=== PATIENT | female | born 1965 | race Caucasian/White ===

== ENCOUNTER 2016-10-19 12:45 | Emergency (ER) | payer MEDICARE, OTHER ==
[~2016-10-19] VITALS: Ht 162.6 cm; Wt 65.4 kg
[~2016-10-19 12:45] MED LIST: ATEN1TAB73 PO; HUMALOG SQ; LANTUSP SQ; LORA0.5T PO; LORTA5 PO
[2016-10-19 12:58] VITALS: BP 119/55; PULSE 56; RESP 16; TEMP 97.7; O2SAT 98
--- NOTE | 2016-10-19 13:12 | PD ---
HPI . lower abdominal pain and painful urination x 4-5 days Chief Complaint: Abdominal Pain Time Seen by Provider: 13:04 Travel History International Travel<30 days: No Contact w/Intl Traveler<30days: No Traveled to known affect area: No History of Present Illness HPI 51-year-old female with history of type 1 diabetes, hyperlipidemia and possible hypertension here with complaints of abdominal pain for 4-5 days with some dysuria. Patient tells me that she has had some lower abdominal pain and fullness. She also repeats increased urinary frequency and dysuria. She tells me that she has some trouble sleeping and that she has been having very vivid dreams about her friend being incarcerated. She tells me that she needs some medication to stop her dreams. She then voices concern that she would like to see psychiatry. When I asked her if she is suicidal or homicidal she denies such ideation. She does have a new primary care doctor who will be taking over her care on 29 October. She denies any nausea, vomiting, diaphoresis, chest pain , diarrhea, or any other significant abdominal pain. PFSH Past Medical History Autoimmune Disease: No Diabetes: Yes Diminished Hearing: Yes ([place]) Hypertension: Yes PNEUMOCCOCAL Vaccine (Year): 2 : 4 Para: 4 Past Surgical History Section: Yes (X 3) Social History Alcohol Use: No Tobacco Use: Yes (ppd) Substance Use: No Allergies-Medications (Allergen,Severity, Reaction): Coded Allergies: Levaquin (Verified Allergy, Severe, DIZZINESS, 03/18/12) Codeine (Verified Allergy, Unknown, Rash, 10/19/16) Sulfa (Verified Allergy, Unknown, 03/18/12) Bactrim (Verified Adverse Reaction, Severe, VAGINAL ITCHING AND SWELLING, 03/18/12) Reported Meds & Prescriptions Reported Meds & Active Scripts Active Keflex (Cephalexin) 500 Mg Cap 500 Mg PO Q6H Reported Atorvastatin (Atorvastatin Calcium) 20 Mg Tab 20 Mg PO HS Metformin (Metformin HCl) 500 Mg Tab 500 Mg PO TIDPC With meals Humalog Kwikpen Pen Inj (Insulin Lispro (Human) Inj) 300 Unit/3 Ml Pen 14 Units SQ TID Levemir Inj (Insulin Detemir) 1,000 unit/ 10 ML Vial 30 Units SQ HS Do not mix with any other Insulin. Review of Systems General / Constitutional: No: Fever Eyes: No: Visual changes HENT: No: Headaches Cardiovascular: No: Chest Pain or Discomfort Respiratory: No: Shortness of Breath Gastrointestinal: Positive: Abdominal Pain Genitourinary: Positive: Frequency, Dysuria Musculoskeletal: No: Pain Skin: No Rash Neurologic: No: Weakness Psychiatric: No: Depression Endocrine: No: Polydipsia Hematologic/Lymphatic: No: Easy Bruising Physical Exam Narrative GENERAL: AAO x 3, no acute distress, Well-nourished, well-developed patient. SKIN: Warm and dry. No visible rashes or bruising. HEAD: Normocephalic and atraumatic. EYES: No scleral icterus. No injection or drainage. b/l stabismus ENT: No nasal drainage noted. Mucous membranes pink. Airway patent. NECK: Supple, trachea midline. No JVD. CARDIOVASCULAR: Regular rate and rhythm without murmurs, gallops, or rubs. RESPIRATORY: Breath sounds equal bilaterally. No accessory muscle use. No rhonchi or rales. GASTROINTESTINAL: Abdomen soft, normoactive bowel sounds, nondistended, + suprapubic tenderness, otherwise normal EXTREMITIES: No cyanosis or edema. BACK: Nontender without obvious deformity. No CVA tenderness. PSYCH: AAO x 3, normal affect. Data Data Last Documented VS Vital Signs Date Time Temp Pulse Resp B/P Pulse Ox O2 Delivery O2 Flow Rate FiO2 10/19/16 13:20 17 10/19/16 12:58 97.7 56 119/55 98 Orders Urinalysis - C+S If Indicated (10/19/16 13:13) Urine Culture (10/19/16 14:09) Gc And Chlamydia Pcr (10/19/16 14:10) Labs Laboratory Tests Test 10/19/16 13:20 Urine Color YELLOW Urine Turbidity HAZY Urine pH 5.5 Urine Specific [place] 1.039 Urine Protein 30 mg/dL Urine Glucose (UA) NEG mg/dL Urine Ketones NEG mg/dL Urine Occult Blood NEG Urine Nitrite NEG Urine Bilirubin NEG Urine Urobilinogen 2.0 MG/DL Urine Leukocyte Esterase TRACE Urine RBC 3 /hpf Urine WBC 1 /hpf Urine Squamous Epithelial 8 /hpf Cells Urine Calcium Oxalate Crystals RARE /hpf Urine Bacteria OCC /hpf Urine Mucus MOD /lpf Microscopic Urinalysis Comment CULT NOT INDICATED MDM Medical Decision Making Medical Screen Exam Complete: Yes Emergency Medical Condition: Yes Medical Record Reviewed: Yes Differential Diagnosis UTI, GERD, insomnia, interstitial cystitis Narrative Course 51-year-old female with history of type 1 diabetes, hyperlipidemia and possible hypertension here with complaints of abdominal pain for 4-5 days with some dysuria. Patient tells me that she has had some lower abdominal pain and fullness. She also repeats increased urinary frequency and dysuria. She tells me that she has some trouble sleeping and that she has been having very vivid dreams about her friend being incarcerated. She tells me that she needs some medication to stop her dreams. She then voices concern that she would like to see psychiatry. When I asked her if she is suicidal or homicidal she denies such ideation. She does have a new primary care doctor who will be taking over her care on 29 October. She denies any nausea, vomiting, diaphoresis, chest pain , diarrhea, or any other significant abdominal pain. Patient seen and examined. Case discussed with Dr. Sims. Will check a UA as it seems as if he has a urinary tract infection. We will check urine culture and GC. We will go ahead and treat for UTI as she is symptomatic. She does not have acute psychiatry issues. She will need to see outpatient psych. We will notify her of any abnormal results. Discussed with Dr. Sims, we will treat with keflex and d/c home. Discussed with patient. She has been encouraged to f/u with her primary care doctor. Patient verbalized understanding of instructions, questions were answered, and thanked me for their care. I advised them if their condition worsens, please return to the nearest emergency room for further care. Diagnosis Primary Impression: Cystitis Patient Instructions: General Instructions, Interstitial Cystitis (ED) Additional Instructions: Please return to emergency department if your symptoms return or worsen. Follow up with your primary care provider. Take medications as prescribed. Med/Other Pt SpecificInfo: Prescription(s) given Scripts Cephalexin (Keflex)500 Mg [id number] Mg PO Q6H #28 CAP Ref 0 Prov:Luís Sims MD 10/19/16 Disposition: 01 DISCHARGE HOME Condition: Stable Keshia Myrick Oct 19, 2016 13:12
[2016-10-19] MEDS ORDERED: METF500T PO (13:19)
[2016-10-19] MEDS ORDERED: ATOR20TA15 PO (13:19)
[2016-10-19] MEDS ORDERED: HUMA100I3 SQ (13:19)
[2016-10-19] MEDS ORDERED: LEVEMIR SQ (13:19)
[2016-10-19 14:05] LABS: BACTERIA, URINE OCC /hpf; BLOOD, URINE NEG (NEG); CALCIUM OXALATE CRYSTALS,URINE RARE /hpf; COMMENT (UR) CULT NOT INDICATED; CULTURE IF INDICATED CULT NOT INDICATED; GLUCOSE,URINE NEG (NEG); KETONE, URINE NEG (NEG); MUCUS URINE MOD /lpf (OCC); NITRITE,URINE NEG (NEG); PH, URINE 5.5 (5.0-8.5); SQUAMOUS EPITHELIAL CELL URINE 8 /hpf (0-5); URINE COLOR YELLOW (YELLW/STRAW)
[2016-10-19] MEDS ORDERED: CEPH-460 PO (14:16)
[2016-10-19 14:30] VITALS: BP 120/77; TEMP 98
--- NOTE | 2016-10-19 14:52 | PD ---
Data Data Last Documented VS Vital Signs Date Time Temp Pulse Resp B/P Pulse Ox O2 Delivery O2 Flow Rate FiO2 10/19/16 14:30 98.0 78 16 120/77 99 Orders Urinalysis - C+S If Indicated (10/19/16 13:13) Urine Culture (10/19/16 14:09) Gc And Chlamydia Pcr (10/19/16 14:10) Labs Laboratory Tests Test 10/19/16 13:20 Urine Color YELLOW Urine Turbidity HAZY Urine pH 5.5 Urine Specific [place] 1.039 Urine Protein 30 mg/dL Urine Glucose (UA) NEG mg/dL Urine Ketones NEG mg/dL Urine Occult Blood NEG Urine Nitrite NEG Urine Bilirubin NEG Urine Urobilinogen 2.0 MG/DL Urine Leukocyte Esterase TRACE Urine RBC 3 /hpf Urine WBC 1 /hpf Urine Squamous Epithelial 8 /hpf Cells Urine Calcium Oxalate Crystals RARE /hpf Urine Bacteria OCC /hpf Urine Mucus MOD /lpf Microscopic Urinalysis Comment CULT NOT INDICATED MDM Supervised Visit with [facility]OX[facility]: Yes Narrative Course The history, exam, and medical decision-making in the associated mid-level provider note were completed with my assistance. I reviewed and agree with the findings presented. I attest that I had a [id number] encounter with the patient on the same day, and personally performed and documented my assessment and findings in the medical record. *My assessment and Findings: 51 year-old woman presents emergent harmful abdominal discomfort dysuria and change in her urine color. Denies any vaginal discharge or vaginal bleeding. Minimal suprapubic tenderness on exam. She looks well. UA doesn't show any significant pyuria but does have some mucus and bacteria. Sent for urine culture. We'll also had GC and chlamydia. Given her suggestive history, will recommend empiric treatment for cystitis. Return for any worsening symptoms. Diagnosis Primary Impression: Cystitis Patient Instructions: General Instructions, Interstitial Cystitis (ED) Departure Forms: Tests/Procedures Additional Instruction: Please return to emergency department if your symptoms return or worsen. Follow up with your primary care provider. Take medications as prescribed. Scripts Cephalexin (Keflex)500 Mg [id number] Mg PO Q6H #28 CAP Ref 0 Prov:Luís Sims MD 10/19/16 Disposition: 01 DISCHARGE HOME Condition: Stable Luís Sims MD Oct 19, 2016 14:52
[2016-10-20 04:02] LABS: CHLAMYDIA PCR NOT DETECTED (NOT DETECT); NEISSERIA PCR NOT DETECTED (NOT DETECT)
== END 2016-10-19 14:30 | disposition home or self-care (01) ==
LOC: NEPC 12:45
DX: N30.90 Cystitis, unspecified without hematuria (principal); R35.0 Frequency of micturition; R10.30 Lower abdominal pain, unspecified; F17.210 Nicotine dependence, cigarettes, uncomplicated; E11.9 Type 2 diabetes mellitus without complications; B96.20 Unspecified Escherichia coli [E. coli] as the cause of diseases classified elsewhere
CPT/HCPCS: 81001; 87077; 87086; 87186; 87491; 87591; 99284